=== PATIENT | male | born 1995 | race American Indian/Alaskan Native ===

== ENCOUNTER 2016-12-16 22:34 | Emergency (ER) | payer MEDICAID ==
[2016-12-16 22:38] VITALS: TEMP 98.5; O2SAT 100
[2016-12-16] MEDS ORDERED: Tmp-Smz 800 mg-160 mg DS Tab PO STA (23:36)
[2016-12-16] MEDS ORDERED: Oxycodone/Acetaminophen 5/325 mg Tab PO STA (23:36)
[2016-12-17] MEDS ORDERED: Lidocaine 1% Inj (20ml) ONE (00:26)
--- NOTE | 2016-12-17 00:46 | ED PDOC ---
Arrival/HPI - General Chief Complaint: Abnormal Skin Integrity Time Seen by Provider: 12/16/16 23:36 Historian: Patient - History of Present Illness Narrative History of Present Illness (Text): 12/17/16 00:16 21-year-old male presents today With abscess to the right axilla times one day. Patient states yesterday was feeling irritation there but today he noticed swelling and worsening pain. Denies fevers or chills. Denies numbness weakness or tingling in the extremities. Patient states he's had an abscess once before in the same axilla. No medications taken for pain at home no other complaints. Symptom Onset: Gradual Symptom Course: Worsening Quality: Aching Severity Level: 6 Past Medical History - Provider Review Nursing Documentation Reviewed: Yes - Travel History Have you recently traveled outside [place] w/in the past 3 mons?: No - Infectious Disease Hx of Infectious Diseases: None - Psychiatric Hx Substance Use: No Family/Social History - Physician Review Nursing Documentation Reviewed: Yes Family/Social History: Unknown Family HX Smoking Status: Light Smoker < 10 Cigarettes Daily Hx Alcohol Use: No Hx Substance Use: No Allergies/Home Meds Allergies/Adverse Reactions: Allergies No Known Allergies Allergy (Verified 12/16/16 22:38) Review of Systems - Review of Systems Constitutional: absent: Fatigue, Fevers Respiratory: absent: SOB, Cough Cardiovascular: absent: Chest Pain, Palpitations Gastrointestinal: absent: Abdominal Pain, Nausea, Vomiting Genitourinary Male: absent: Dysuria Musculoskeletal: absent: Arthralgias, Back Pain, Neck Pain Skin: Abscess Neurological: absent: Headache, Dizziness Psychiatric: absent: Anxiety, Depression Physical Exam Vital Signs Reviewed: Yes Vital Signs Temp Pulse Resp BP Pulse Ox 12/16/16 22:38 98.5 F 50 L 18 123/79 100 Temperature: Afebrile Blood Pressure: Normal Pulse: Regular Respiratory Rate: Normal Appearance: Positive for: Well-Appearing, Non-Toxic, Comfortable Pain Distress: None Mental Status: Positive for: Alert and Oriented X 3 - Systems Exam Head: Present: Atraumatic Mouth: Present: Moist Mucous Membranes Neck: Present: Normal Range of Motion Respiratory/Chest: Present: Clear to Auscultation, Good Air Exchange. No: Respiratory Distress, Accessory Muscle Use Cardiovascular: Present: Regular Rate and Rhythm, Normal S1, S2. No: Murmurs Upper Extremity: Present: Normal ROM Neurological: Present: GCS=15 Skin: Present: Warm, Dry, Abscess (there is a 2cm round indurated area of erythema with small area of fluctuance noted in the right axilla. ) Psychiatric: Present: Alert Medical Decision Making ED Course and Treatment: 12/17/16 00:50 Patient is nontoxic well-appearing in no distress. Vital signs are stable. Motrin, Percocet given for pain Bactrim DS p.o., Keflex I&D performed, dressing applied Patient was advised to use warm compresses warm soaks return to the emergency room in 2 days for packing removal return immediately if symptoms worsen persist or if new symptoms develop. advised taking antibiotics as prescribed. Advised follow-up with the surgeon Impression: Abscess, axilla Motrin one tablet every 6 hours as needed for pain Percocetone tablet every 6 hours as needed for moderate to severe pain: May cause drowsiness Bactrim DS: One tablet twice daily x7 days Keflex 1 capsule 4 times daily 7 days Warm compresses and warm soaks frequently Return in 2 days for packing removal and wound check follow-up with the surgeon within the next 2 days Return immediately if symptoms worsen persist or if new symptoms develop: High fevers, increasing pain, increasing redness, swelling or if any other concerning symptoms develop. - Medication Orders Current Medication Orders: Discontinued Medications Oxycodone/Acetaminophen (Percocet 5/325 Mg Tab) 1 tab PO STAT STA Stop: 12/16/16 23:37 Last Admin: 12/16/16 23:48 Dose: 1 tab Trimethoprim/Sulfamethoxazole (Bactrim Ds Tab) 1 tab PO STAT STA PRN Reason: Protocol Stop: 12/16/16 23:37 Last Admin: 12/16/16 23:48 Dose: 1 tab Procedures - Incision and Drainage Site: right axilla Blade Size: 11 I & D Procedure: sterile drapes applied, sterile dressing applied, gauze wick placed Progress: right axilla abscess Area prepped and draped using sterile technique. 3 mL of lidocaine 1% injected locally over the central fluctuance. Small quarter inch incision made over the central fluctuance. Small amount of purulent discharge released. Wound explored for loculations. Quarter-inch sterile gauze packing placed. Dressing applied. Patient tolerated procedure well. No complications Disposition/Present on Arrival - Present on Arrival Any Indicators Present on Arrival: No History of DVT/PE: No History of Uncontrolled Diabetes: No Urinary Catheter: No History of Decub. Ulcer: No History Surgical Site Infection Following: None - Disposition Have Diagnosis and Disposition been Completed?: Yes Diagnosis: Abscess, axilla Disposition: HOME/ ROUTINE Disposition Time: 00:52 Patient Plan: Discharge Condition: GOOD Discharge Instructions (ExitCare): Abscess (ED) Additional Instructions: Motrin one tablet every 6 hours as needed for pain Percocetone tablet every 6 hours as needed for moderate to severe pain: May cause drowsiness Bactrim DS: One tablet twice daily x7 days Keflex 1 capsule 4 times daily 7 days Warm compresses and warm soaks frequently Return in 2 days for packing removal and wound check follow-up with the surgeon within the next 2 days Return immediately if symptoms worsen persist or if new symptoms develop: High fevers, increasing pain, increasing redness, swelling or if any other concerning symptoms develop. Prescriptions: Cephalexin [Keflex] 500 mg PO QID #28 capsule Ibuprofen [Motrin] 600 mg PO Q6H PRN #20 tab PRN Reason: pain/fever reduction oxyCODONE/Acetaminophen [Percocet 5/325 mg Tab] 1 tab PO Q6H PRN #6 tab PRN Reason: moderate to severe pain Sulfamethoxazole/Trimethoprim [Bactrim DS 800 mg-160 mg] 1 tab PO BID #14 tab Referrals: Endy Wheeler MD [Staff Provider] - Follow up with primary Tiffany Bowden MD [Staff Provider] - Follow up with primary Forms: [employer] ([place]), WORK NOTE
[2016-12-17 01:20] VITALS: BP 128/80; PULSE 62; RESP 16
== END 2016-12-17 01:21 | disposition home or self-care (01) ==
LOC: ED 22:34
DX: L02.411 Cutaneous abscess of right axilla (principal)

== ENCOUNTER 2016-12-18 21:46 | Emergency (ER) | payer MEDICAID ==
[2016-12-18 21:54] VITALS: BMI 21.9
[2016-12-18 21:59] VITALS: BP 114/76; PULSE 84; RESP 18; TEMP 98.2; O2SAT 99
--- NOTE | 2016-12-18 22:18 | ED PDOC ---
Arrival/HPI - General Chief Complaint: Wound Check Time Seen by Provider: 12/18/16 21:58 Historian: Patient - History of Present Illness Narrative History of Present Illness (Text): 12/18/16 22:13 Celio Contreras Jr is a 21 year old male who presents to the Emergency department for wound check following an incision and drainage 2 days ago. Patient states the abscess in getting better and denies any other complaints. Patient was given a prescription for antibiotics and states he has not filled the prescription yet. Patient denies any fever, chills, nausea, vomiting, headache, dizziness, or any other complaints. Symptom Onset: Gradual Symptom Course: Unchanged Activities at Onset: Light Context: Home Past Medical History - Provider Review Nursing Documentation Reviewed: Yes - Infectious Disease Hx of Infectious Diseases: None - Psychiatric Hx Substance Use: No Family/Social History - Physician Review Nursing Documentation Reviewed: Yes Family/Social History: Unknown Family HX Smoking Status: Light Smoker < 10 Cigarettes Daily Hx Alcohol Use: No Hx Substance Use: No Allergies/Home Meds Allergies/Adverse Reactions: Allergies No Known Allergies Allergy (Verified 12/16/16 22:38) Review of Systems - Physician Review All systems were reviewed & negative as marked: Yes - Review of Systems Constitutional: Normal. absent: Fevers Eyes: Normal ENT: Normal Respiratory: Normal. absent: SOB, Cough Cardiovascular: Normal. absent: Chest Pain Gastrointestinal: Normal. absent: Abdominal Pain, Diarrhea, Nausea, Vomiting Genitourinary Male: Normal. absent: Dysuria, Frequency, Hematuria Musculoskeletal: Normal. absent: Back Pain, Neck Pain Skin: Normal. absent: Rash Neurological: Normal. absent: Headache, Dizziness Endocrine: Normal Hemo/Lymphatic: Normal Psychiatric: Normal Physical Exam Vital Signs Reviewed: Yes Vital Signs Temp Pulse Resp BP Pulse Ox 12/18/16 21:55 98.2 F 84 18 114/76 99 Temperature: Afebrile Blood Pressure: Normal Pulse: Regular Respiratory Rate: Normal Appearance: Positive for: Well-Appearing, Non-Toxic, Comfortable Pain Distress: None Mental Status: Positive for: Alert and Oriented X 3 - Systems Exam Head: Present: Atraumatic, Normocephalic Pupils: Present: PERRL Extroacular Muscles: Present: EOMI Conjunctiva: Present: Normal Mouth: Present: Moist Mucous Membranes Neck: Present: Normal Range of Motion Respiratory/Chest: Present: Clear to Auscultation, Good Air Exchange. No: Respiratory Distress, Accessory Muscle Use Cardiovascular: Present: Regular Rate and Rhythm, Normal S1, S2. No: Murmurs Abdomen: Present: Normal Bowel Sounds. No: Tenderness, Distention, Peritoneal Signs Back: Present: Normal Inspection Upper Extremity: Present: Normal ROM, NORMAL PULSES, Neurovascularly Intact, Capillary Refill < 2s, Other (Right inguinal abscess with packing in place, the surrounding area is mildly indurated with no purulent discharge). No: Cyanosis , Edema Lower Extremity: Present: Normal Inspection. No: Edema Neurological: Present: GCS=15, CN II-XII Intact, Speech Normal Skin: Present: Warm, Dry, Normal Color. No: Rashes Psychiatric: Present: Alert, Oriented x 3, Normal Insight, Normal Concentration Medical Decision Making ED Course and Treatment: 12/18/16 22:13 Impression: 21 year old male presents for right inguinal abscess wound check s/p incision and drainage. Differential Diagnosis included but are not limited to: wound check Plan: -- Reassess and disposition Progress Notes: Right inguinal abscess with packing in place, the surrounding area is mildly indurated with no purulent discharge. Packing was removed, abscess cavity was irrigated with normal saline. Recommended patient fill his antibiotics and follow-up outpatient or return if symptoms persist/worsen or new concerning symptoms arise.. Patient stable for discharge. - Scribe Statement The provider has reviewed the documentation as recorded by the Hua Pena Provider Scribe Attestation: All medical record entries made by the Scribshayla were at my direction and personally dictated by me. I have reviewed the chart and agree that the record accurately reflects my personal performance of the history, physical exam, medical decision making, and the department course for this patient. I have also personally directed, reviewed, and agree with the discharge instructions and disposition. Disposition/Present on Arrival - Present on Arrival Any Indicators Present on Arrival: No History of DVT/PE: No History of Uncontrolled Diabetes: No Urinary Catheter: No History of Decub. Ulcer: No History Surgical Site Infection Following: None - Disposition Have Diagnosis and Disposition been Completed?: Yes Diagnosis: Wound check, abscess Disposition: HOME/ ROUTINE Disposition Time: 10:30 Condition: STABLE Discharge Instructions (ExitCare): Abscess (ED) Additional Instructions: return to emergency room with worsenin g symptoms or concerns. Forms: [email or web address] ([place])
== END 2016-12-18 22:42 | disposition home or self-care (01) ==
LOC: ED 21:46
DX: Z51.89 Encounter for other specified aftercare (principal)

== ENCOUNTER 2017-05-01 14:09 | Emergency (ER) | payer MEDICAID ==
[2017-05-01 14:09] VITALS: BMI 21.9
== END 2017-05-01 17:09 | disposition left against medical advice (07) ==
LOC: ED 14:09
DX: Z02.89 Encounter for other administrative examinations (principal); H10.029 Other mucopurulent conjunctivitis, unspecified eye